=== PATIENT | male | born 1980 | race Hispanic/Latino ===

== ENCOUNTER → 2018-06-17 | Day surgery (SDC) | payer BC ==
[~2018-06-17] MED LIST: ACETAMINOPHEN 1000 MG/100 ML IV ONE; DEXAMETHASONE SOD PHOS INJ 4 MG/ML VIAL ONE; FENTANYL CITRATE/PF 100MCG/2 ML INJ ONE; LIDOCAINE 1% W/EPINEPHRINE 20 ML VIAL ONE; LIDOCAINE HCL 2% LOCAL INJ 5 ML SDV VIAL INJ ONE; MIDAZOLAM HCL 2 MG/2 ML VIAL ONE; MUPIROCIN 2% OINT 22 GM TUBE ONE; ONDANSETRON HCL INJ 2 MG/ML VIAL ONE; OXYMETAZOLINE HCL 0.05% NAS 1 SPRAY BTL ONE; PROPOFOL IV EMULSION 10 MG/ML 20 ML VIAL ONE; ROCURONIUM BROMIDE 10 MG/ML 5ML VIAL ONE; SEVOFLURANE INHAL SOLN 250 ML PEN BTL ONE; SODIUM CHLORIDE/ALOE VERA 14.1GM NASAL GEL ONE
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
--- OUTSIDE RECORDS SUMMARY | 2018-06-17 05:48 | XMS REPORT | Summary of Care ---
Author Author [facility] Address Unknown Phone Unavailable Encounter [facility] Encntr_alipierre(FIN) [id number] Date(s): 11/12/17 - 12/11/17 [facility] Discharge Disposition: Home or Self Care Attending Physician: Ravi Arce MD Vital Signs No data available for this section Problem List No data available for this section Allergies, Adverse Reactions, Alerts Substance Reaction Severity Status NKDA Active Medications No data available for this section Results No data available for this section Immunizations No data available for this section Procedures No data available for this section Social History Social History Type Response Smoking Status Never smoker; Exposure to Tobacco Smoke None; Cigarette Smoking Last 365 Days No; Reg Smoking Cessation Counseling No entered on: 04/22/16 Assessment and Plan No data available for this section
[2018-06-17 09:45] VITALS: BP 110/74
--- NOTE | 2018-06-17 09:47 | Operative Report ---
DATE OF PROCEDURE: June 17, 2018 PREOPERATIVE DIAGNOSES 1. Nasal obstruction. 2. Deviated septum. 3. Turbinate hypertrophy. POSTOPERATIVE DIAGNOSES 1. Nasal obstruction. 2. Deviated septum. 3. Turbinate hypertrophy. PROCEDURES 1. Septoplasty. 2. Bilateral inferior turbinate reductions (ArthroCare Coblation). SIGNIFICANT FINDINGS: Severely deviated septum to the right. Bilateral inferior turbinate hypertrophy. INTERNET ARCHITECT: None. ANESTHESIA: General endotracheal tube anesthesia. SPECIMENS REMOVED: Septal contents (not sent for pathology). ESTIMATED BLOOD LOSS: Less than 5 mL. COMPLICATIONS: None. INDICATIONS: Patient is a 37-year-old male with greater than 3 years' history of nasal obstruction, worse on the right side. He experiences clear and cloudy rhinorrhea. There is no sinus pain or headaches. He has had no previous sinus or nasal surgery. He has been refractory to medical treatment, including Flonase nasal spray. He denies any use of aibl-wct-jygvabn nasal decongestant sprays. He is a nonsmoker. On examination, there is severe septal deviation to the right (posteriorly) with bilateral inferior turbinate hypertrophy. He is scheduled for septoplasty and turbinate reductions for the treatment of nasal obstruction caused by deviated septum and turbinate hypertrophy. Risks and complications of the procedures were thoroughly discussed with the patient, which include infection, bleeding, scarring, failure to improve, need for additional operations, persistent nasal obstruction, poor external cosmetic appearance of the nose, septal perforation resulting in irritation, crusting, bleeding, and pain, inability to smell or taste, need for blood transfusions, chronic headache(s), damage to surrounding nerves, blood vessels, and muscles. He fully understands and gives consent. PROCEDURE: Patient was taken to the operating room and placed supine on the operating table where general anesthesia was achieved through orotracheal intubation. Eyes were taped. Ancef was administered. Injection with 4 mL of 1% lidocaine with 1:100,000 epinephrine was injected into the submucoperichondrial planes bilaterally followed by packing of the nose with Cottonoid pledgets soaked with Afrin. The face was prepped and draped in the usual sterile fashion. Cottonoid pledgets were then removed. Examination with the 0-degree nasal endoscope revealed severe septal deviation to the right posteriorly with bilateral inferior turbinate hypertrophy. There was no evidence of purulence, polyps or masses. A hemitransfixion incision was made on the left hand side with a 15 blade. The overlying mucoperichondrial was elevated off the right side past the bony cartilaginous junction. The quadrangular cartilage was disarticulated from the bony septum. The deviation was primarily in the posterior bony septum. The deviated bony septum was taken down with Miguel-Raghav double-action rongeurs. In this way, the septum became straight. Following this, the inferior turbinates were then reduced with the ArthroCare Coblation. Multiple passes were made on each side. The inferior turbinates were then lateralized with the Davis elevator. The hemitransfixion incision was repaired with interrupted 4-0 Monocryl followed by the placement of bilateral silastic septal splints (coated with antibiotic ointment), which were held with through and through 2-0 silk. Merocel packs also coated with antibiotic ointment were then inserted into the nose bilaterally with the strings tied loosely around the columella. A drip pad was placed. Patient was awakened in the operating room, extubated and taken to the recovery room in good condition. Job#: [id number] KOTA BARNES
== END | disposition home or self-care (01) ==
LOC: OR 05:46
PROVIDERS: ATTEND Otolaryngology
DX: J34.2 Deviated nasal septum (principal); J34.89 Other specified disorders of nose and nasal sinuses; J34.3 Hypertrophy of nasal turbinates; J45.909 Unspecified asthma, uncomplicated; T78.40XA Allergy, unspecified, initial encounter; X58.XXXA Exposure to other specified factors, initial encounter
CPT/HCPCS: 30130; 30520; J0131; J1100; J2001; J2250; J2405; J2704

== ENCOUNTER → 2021-04-30 | Outpatient (CLI) | payer BC | LOC: US 14:42 | PROVIDERS: ATTEND Internal Medicine | DX: R94.5 Abnormal results of liver function studies (principal) | CPT/HCPCS: 76705 ==